=== PATIENT | female | born 1990 | race Caucasian/White ===

== ENCOUNTER 2018-12-03 19:17 | Inpatient (IN) | payer SELFPAY ==
[~2018-12-03] VITALS: Ht 165.1 cm; Wt 122.9 kg
[2018-12-03] MEDS ORDERED: PRENTAB9 PO (20:01)
[2018-12-03] MEDS ORDERED: LR 1,000 ML IV SCH (20:09)
[2018-12-03] MEDS ORDERED: OXYTOCIN DRIP 30 UNITS in APPROPRIATE DILUENT 1 EA IV SCH ×2 (20:15→22:46)
[2018-12-03 20:34] LABS: HEMATOCRIT 31.6 % (36.0-47.0); HEMOGLOBIN 11.2 g/dl (12.0-15.5); MEAN CORPUSCULAR HEMOGLOBIN 29.7 pg (27.0-33.0); MEAN CORPUSCULAR HGB CONC 35.4 g/dl (32.0-36.5); MEAN CORPUSCULAR VOLUME 83.8 fl (80.0-96.0); PLATELET COUNT, AUTOMATED 254 10^3/uL (150-450); RED BLOOD COUNT 3.77 10^6/uL (4.00-5.40)
[2018-12-03] MEDS ORDERED: OXYTOCIN 30 UNITS IN 0.9% NaCl 500ML IV BAG (J2590) As Ordered ONE (21:59)
[2018-12-03 22:06] LABS: HIV 1&2 SCREEN CENTAUR NEGATIVE (NEGATIVE)
[2018-12-03 22:29] LABS: CORD GAS ABE A -7.5; CORD GAS HCO3 A 22.4 MEQ/L; CORD GAS O2 SAT A 21.9 %; CORD GAS PCO2 A 64.1 mmHg; CORD GAS PH A 7.162 UNITS; CORD GAS PO2 A 16.5 mmHg; CORD GAS SBC A 16.8 MEQ/L; CORD GAS TCO2 A 24.4 MEQ/L
[2018-12-03 22:31] LABS: CORD GAS ABE V -5.7; CORD GAS HCO3 V 20.8 MEQ/L; CORD GAS O2 SAT V 58.4 %; CORD GAS PCO2 V 44.5 mmHg; CORD GAS PH V 7.288 UNITS; CORD GAS PO2 V 27.6 mmHg; CORD GAS SBC V 18.9 MEQ/L; CORD GAS TCO2 V 22.2 MEQ/L
[2018-12-03] MEDS ORDERED: IBUPROFEN 800 MG TAB PO PRN (23:00)
[2018-12-03] MEDS ORDERED: ANUSOL HC CREAM 30GM TOP PRN (23:00)
[2018-12-03] MEDS ORDERED: IBUPROFEN 600 MG TAB PO PRN (23:00)
[2018-12-03] MEDS ORDERED: RHOGAM 300 MCG (1500 IU) INJ (J2790) IM SCH (23:00)
[2018-12-03] MEDS ORDERED: DIBUCAINE 1% OINTMENT 30GM TOP PRN (23:00)
[2018-12-03] MEDS ORDERED: ACETAMINOPHEN TAB 650MG DOSE (2X325MG) PO PRN (23:00)
[2018-12-03] MEDS ORDERED: ACETAMINOPHEN 500 MG TAB PO PRN (23:00)
[2018-12-03] MEDS ORDERED: ONDANSETRON 4MG/2ML VIAL (J2405) IV PRN (23:00)
[2018-12-03] MEDS ORDERED: METHYLERGONOVINE MALEATE 0.2 MG TAB PO PRN (23:00)
[2018-12-03] MEDS ORDERED: MEASLES,MUMPS,RUBELLA VACCINE INJ (MMR-II) (90707) SC SCH (23:00)
[2018-12-03] MEDS ORDERED: MOM 30ML SUSPENSION UDC PO PRN (23:00)
[2018-12-03] MEDS ORDERED: DOCUSATE SODIUM 100 MG CAP PO PRN (23:00)
--- NOTE | 2018-12-04 00:01 | HPE ---
DATE OF ADMISSION: 12/03/2018 REASON FOR ADMISSION: Trial of labor after section. HISTORY OF PRESENT ILLNESS: This patient is a 28-year-old 5, para 3 who presents at 41+ weeks with complaints of vaginal bleeding. She reports some contractions that started prior and had large gush of vaginal bleeding. Presented for evaluation. The patient has been seeing a relay worker and has had very limited care. She reports her last appointment was 2 weeks ago and had intentions on delivering at home. PAST MEDICAL HISTORY: None. PAST SURGICAL HISTORY: She has had a section. OBSTETRICAL HISTORY: She is 5, para 3. She has had section followed by two vaginal births after section (VBACs), both at home, and a miscarriage. MEDICATIONS: Include vitamins. ALLERGIES: She has no known drug allergies. SOCIAL HISTORY: She lives at home with her children and . She is of [place] descent. PHYSICAL EXAMINATION: VITAL SIGNS: Stable. She is afebrile. GENERAL APPEARANCE: Well appearing. No acute distress. She has a category 1 heart tracing with some irregular contractions on tocometer. LUNGS: Clear to auscultation bilaterally. CARDIOVASCULAR: Regular rate and rhythm. ABDOMEN: Gravid, nontender. Bedside ultrasound demonstrated fetus in cephalic presentation and an anterior fundal placenta. LABORATORIES: She is A negative and GBS negative. ASSESSMENT: 1. This patient is a 28-year-old 5, para 3 at 41 weeks. Appears to be in active labor. 2. Reassuring status. 3. History of section. PLAN: The patient has thoroughly counseled in regard to her diagnosis. I have discussed mode of delivery to include elective repeat section versus a trial labor after section. Discussed risks of both. The patient desires trial labor after section. She has been verbally consented for emergency surgery, blood products, anesthesia, and desires to proceed. Anticipate spontaneous vaginal delivery. [place]
[2018-12-04 02:27] VITALS: BP 123/69
--- NOTE | 2018-12-04 02:41 | NUR ---
Note: ~2hrs post vaginal delivery call to room for PPH. ~200-300. pitcoin bolus, metheraine 0.2mg given and ADALI clear. Watts cath placed wiht 350ml clear urine. vss -delayed PPH 2' atony total EBL 600ml . Methergine series started Ester Be MD
[2018-12-04] MEDS: METHYLERGONOVINE MALEATE 0.2 MG TAB PO SCH ×6 (03:19→23:00)
[2018-12-04 05:51] VITALS: BP 119/67
--- NOTE | 2018-12-04 06:37 | DN ---
DATE OF DELIVERY: 12/03/2018 TIME OF : 2214 hours. GENDER: Female. SCORES: 8 and 9. WEIGHT: 9 pounds 5 ounces or 4220 grams. LACERATIONS: None. ANESTHESIA: None. ESTIMATED BLOOD LOSS: 300 mL. COUNTS: Five laparotomy sponges were accounted for prior to and after delivery. DELIVERY NOTE: On December 03, 2018 at 2214 hours, Mrs. Bennett a 28-year-old 5 now para 4, had a spontaneous vaginal delivery after a section of live born female , scores 8 and 9, weight was 9 pounds 5 ounces or 4220 grams. Head was delivered OP over intact perineum followed by delivery of shoulders and corpus. Infant was handed to Dr. Beach, senior scientist, secondary to meconium-stained amniotic fluid. Cord was clamped times two and was cut by the father of baby under my direction. Cord gases were obtained. Cord gases 7.16 and 7.28, base excesses -7.6 and -5.7 respectively. The placenta was then drained and delivered grossly intact. A premixed bag of 500 mL of normal saline with 30 units of Pitocin was bolused along with uterine massage until the uterus was firm. On inspection cervix, vagina and perineum was grossly intact and hemostatic. Mom and baby were recovering in stable condition. [facility]
[2018-12-04] MEDS: PRENATAL VITAMINS CHEWABLE TABLET PO SCH (07:57)
--- NOTE | 2018-12-04 15:40 | NUR ---
PPD# 1 S: Doing well w/o complaints. +voids, +ambulation and pain well controlled O: vss, AF gen: well appearing abd: soft, nttp ff@U ext: neg calf tenderness A/P: PPD # 1 s/p NSD, recovering in stable condition -continue routine care -d/c plans for tomorrow Ester Be MD
[2018-12-04 18:00] VITALS: BP 111/68
[2018-12-05 05:40] VITALS: BP 105/61
[2018-12-05] MEDS: PRENATAL VITAMINS CHEWABLE TABLET PO SCH (08:49)
[2018-12-05] MEDS ORDERED: MAPA500T2 PO ×2 (09:13→09:14)
[2018-12-05] MEDS ORDERED: IBUP-1114 PO ×2 (09:15→09:16)
[2018-12-05] MEDS ORDERED: COLA100C5 PO (09:17)
[2018-12-05] MEDS ORDERED: MOM30SS PO (09:17)
== END 2018-12-05 12:50 | disposition home or self-care (01) | DRG 560 ==
LOC: M LDO 19:17 → M LDI 19:59 → M OBS 12-04 01:59
PROVIDERS: ADMIT Obstetrics & Gynecology; ATTEND Obstetrics & Gynecology
PROC: 10E0XZZ Delivery of Products of Conception, External Approach (ICD-10-PCS; principal; 2018-12-03)
DX: O48.0 Post-term pregnancy (principal); O34.211 Maternal care for low transverse scar from previous cesarean delivery; Z37.0 Single live birth; Z3A.41 41 weeks gestation of pregnancy